=== PATIENT | female | born 2000 | race Caucasian/White ===

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

== ENCOUNTER → 2019-05-16 | Outpatient (CLI) | payer BC ==
[2019-05-16 10:28] LABS: Candida species (DNA Probe) Negative (NEGATIVE); G. vaginalis (DNA Probe) Positive (NEGATIVE); T. vaginalis (DNA Probe) Negative (NEGATIVE)
[2019-05-17 05:09] LABS: HIV SCREEN 4TH GENERATION WRFX Non Reactive (Non Reactive)
[2019-05-17 06:08] LABS: HBSAG SCREEN Negative (Negative); HEP C VIRUS AB <0.1 (0.0-0.9)
[2019-05-17 21:06] LABS: CHLAMYDIA TRACHOMATIS, NAA Negative (Negative); NEISSERIA GONORRHOEAE, NAA Negative (Negative)
[2019-05-19 08:08] LABS: HEP A AB, IGM Negative; HEP B CORE AB, IGM Negative
== END | disposition home or self-care (01) ==
LOC: LAB SHORT 09:23 → LAB 09:23
PROVIDERS: Physician Assistant
DX: R10.9 Unspecified abdominal pain (principal)
CPT/HCPCS: 80074; 86592; 87086; 87389; 87480; 87491; 87510; 87591; 87660

== ENCOUNTER 2020-04-16 12:11 | Emergency (ER) | payer BC ==
[~2020-04-16] VITALS: Ht 162.6 cm; Wt 86.2 kg
[2020-04-16 13:14] LABS: BASOPHILS ABSOLUTE AUTO 0.04 K/mm3 (0.00-0.23); BASOPHILS PERCENT AUTO 1 % (0-2); EOSINOPHILS ABSOLUTE AUTO 0.15 K/mm3 (0.00-0.68); EOSINOPHILS PERCENT AUTO 2 % (0-6); Hematocrit 43.9 % (33.0-51.0); Hemoglobin 14.6 g/dL (11.5-16.0); IMMATURE GRAN ABSOLUTE AUTO 0.02 K/mm3 (0.00-0.10); IMMATURE GRAN PERCENT AUTO 0 % (0-1); LYMPHOCYTES ABSOLUTE AUTO 1.27 K/mm3 (0.84-5.20); LYMPHOCYTES PERCENT AUTO 15 % (21-46); MONOCYTES ABSOLUTE AUTO 0.68 K/mm3 (0.16-1.47); MONOCYTES PERCENT AUTO 8 % (4-13); Mean Corpuscular HGB Conc 33.3 g/dL (31.5-36.5); Mean Corpuscular Volume 90 fL (80-100); NEUTROPHILS ABSOLUTE AUTO 6.52 K/mm3 (1.96-9.15); NEUTROPHILS PERCENT AUTO 75 % (41-73); Platelet Count 269 K/mm3 (150-400); RDW Coefficient Variation 12.1 % (11.7-14.2); RDW Standard Deviation 40.2 fL (35.1-46.3); Red Blood Cell Count 4.86 M/mm3 (3.80-5.20); White Blood Cell Count 8.68 K/mm3 (4.00-11.30)
[2020-04-16 13:39] LABS: Alanine Aminotransfer (ALT/SGP 35 U/L (12-78); Alk Phos 86 U/L (50-136); Anion Gap 5 mmol/L (6-16); Aspartate Aminotrans (AST/SGOT 30 U/L (12-37); Bilirubin, Total 0.5 mg/dL (0.1-1.0); Blood Urea Nitrogen 14 mg/dL (8-24); Bun/Creatinine Ratio 16.1 (12.0-20.0); CO2, Blood 25 mmol/L (21-32); Chloride, Blood 109 mmol/L (98-108); Creatinine, Blood 0.87 mg/dL (0.40-1.00); Glomerular Filtration Rate >60 (60-); Glucose, Blood 66 mg/dL (70-99); Potassium, Blood 3.9 mmol/L (3.5-5.5); Sodium, Blood 139 mmol/L (136-145)
[2020-04-16 14:20] LABS: Source, Urine Clean Catch
[2020-04-16 15:22] LABS: Appearance, Urine Clear (Clear); Bilirubin, Urine Neg (Neg); Blood, Urine 1+ (Neg); Color, Urine Yellow (P-Yellow); Glucose Qualitative, Urine Neg (Neg); Ketones, Urine Neg (Neg); Leukocyte Esterase, Urine Neg (Neg); Nitrite, Urine Neg (Neg); Protein, Urine Neg (Neg); Urobilinogen, Urine NORM (Normal)
[2020-04-16 15:51] LABS: White Blood Cells, Urine Not Seen /hpf (0-5)
[2020-04-16 15:52] LABS: Bacteria Not Seen /hpf; Red Blood Cells, Urine Rare /hpf (0-2); Squamous Epithelial Cells Rare /hpf (Few)
== END 2020-04-16 15:54 | disposition home or self-care (01) ==
LOC: ER 12:11
PROVIDERS: Physician Assistant
DX: E16.2 Hypoglycemia, unspecified (principal); Z88.0 Allergy status to penicillin; Z88.1 Allergy status to other antibiotic agents; Z88.2 Allergy status to sulfonamides
CPT/HCPCS: 36415; 80053; 81001; 82947; 85025; 99284

== ENCOUNTER 2021-01-21 08:25 | Day surgery (SDC) | payer BC, SELFPAY ==
[~2021-01-21] VITALS: Ht 162.6 cm; Wt 96.1 kg
[~2021-01-21 08:25] MED LIST changes: +MELO7.5; +PANT40
[2021-01-21] MEDS ORDERED: MELO7.5 PO (09:03)
[2021-01-21] MEDS ORDERED: BUSP5 PO (09:04)
--- NOTE | 2021-01-21 09:22 | NUR ---
01/21/21 0922 Antoinette Aguilar PT STS PCN ALLERGY IS MILD RASH; SURGEON NOTIFIED. STS OKAY TO PROCEED WITH TEST DOSE OF 10ML. IF NO REACTION, CONTINUE WITH REMAINING ANCEF DOSE.
--- NOTE | 2021-01-21 10:31 | NUR ---
01/21/21 1031 Robert Dubois 1 MG EPI ADDED TO THE FIRST BAG OF LR FOR IRRIGATION PER ORDER.
== END 2021-01-21 11:25 | disposition home or self-care (01) ==
LOC: ORSCSDS 08:25
PROVIDERS: Orthopaedic Surgery
PROC: 0SQD4ZZ Repair Left Knee Joint, Percutaneous Endoscopic Approach (ICD-10-PCS; principal; 2021-01-21 09:45)
PROC: 0SCD4ZZ Extirpation of Matter from Left Knee Joint, Percutaneous Endoscopic Approach (ICD-10-PCS; principal; 2021-01-21 09:45)
DX: M93.262 Osteochondritis dissecans, left knee (principal); J45.909 Unspecified asthma, uncomplicated; F41.8 Other specified anxiety disorders; K21.9 Gastro-esophageal reflux disease without esophagitis; F32.9 Major depressive disorder, single episode, unspecified; E66.9 Obesity, unspecified; Z68.36 Body mass index [BMI] 36.0-36.9, adult; Z79.899 Other long term (current) drug therapy
CPT/HCPCS: 88304; 88311; A9270; J0171; J0690; J1100; J1885; J2250; J2405; J2704; J2765; J3010; J7120

== ENCOUNTER 2021-06-03 03:51 | Emergency (ER) | payer OTHER, BC ==
[~2021-06-03] VITALS: Ht 165.1 cm; Wt 98.9 kg
[~2021-06-03 03:51] MED LIST changes: +BUSP5 PO; +MELO7.5 PO
== END 2021-06-03 06:27 | disposition home or self-care (01) ==
LOC: ER 03:51
DX: S09.90XA Unspecified injury of head, initial encounter (principal); F17.210 Nicotine dependence, cigarettes, uncomplicated; Z88.0 Allergy status to penicillin; Z88.1 Allergy status to other antibiotic agents; Z88.2 Allergy status to sulfonamides; Z88.8 Allergy status to other drugs, medicaments and biological substances; Y04.2XXA Assault by strike against or bumped into by another person, initial encounter; Y93.F9 Activity, other caregiving; Y92.239 Unspecified place in hospital as the place of occurrence of the external cause; Y99.0 Civilian activity done for income or pay
CPT/HCPCS: 99283

== ENCOUNTER 2022-07-14 08:45 | Emergency (ER) | payer BC ==
[~2022-07-14] VITALS: Ht 165.1 cm; Wt 99.8 kg
[~2022-07-14 08:45] MED LIST changes: +Atarax10 MG PO; +ONDA4ODT MM
[2022-07-14 10:34] LABS: Source, Urine Clean Catch
[2022-07-14 10:46] LABS: BASOPHILS ABSOLUTE AUTO 0.07 K/mm3 (0.00-0.23); BASOPHILS PERCENT AUTO 1 % (0-2); EOSINOPHILS ABSOLUTE AUTO 0.17 K/mm3 (0.00-0.68); EOSINOPHILS PERCENT AUTO 2 % (0-6); Hematocrit 39.5 % (33.0-51.0); Hemoglobin 12.3 g/dL (11.5-16.0); IMMATURE GRAN ABSOLUTE AUTO 0.03 K/mm3 (0.00-0.10); IMMATURE GRAN PERCENT AUTO 0 % (0-1); LYMPHOCYTES ABSOLUTE AUTO 3.76 K/mm3 (0.84-5.20); LYMPHOCYTES PERCENT AUTO 34 % (21-46); MONOCYTES ABSOLUTE AUTO 0.77 K/mm3 (0.16-1.47); MONOCYTES PERCENT AUTO 7 % (4-13); Mean Corpuscular HGB 25.9 pg (26.0-34.0); Mean Corpuscular HGB Conc 31.1 g/dL (31.5-36.5); Mean Corpuscular Volume 83 fL (80-100); Mean Platelet Volume 9.2 fL (9.1-12.4); NEUTROPHILS ABSOLUTE AUTO 6.23 K/mm3 (1.96-9.15); NEUTROPHILS PERCENT AUTO 57 % (41-73); Platelet Count 297 K/mm3 (150-400); RDW Coefficient Variation 12.5 % (11.7-14.2); RDW Standard Deviation 38.2 fL (35.1-46.3); Red Blood Cell Count 4.74 M/mm3 (3.80-5.20); White Blood Cell Count 11.03 K/mm3 (4.00-11.30)
[2022-07-14 10:50] LABS: Bilirubin, Urine Neg (Neg); Blood, Urine Neg (Neg); Glucose Qualitative, Urine Neg (Neg); Ketones, Urine Neg (Neg); Leukocyte Esterase, Urine Neg (Neg); Nitrite, Urine Neg (Neg); Protein, Urine Neg (Neg); Specific Gravity, Urine 1.015 (1.003-1.022); Urobilinogen, Urine NORM (Normal)
[2022-07-14 10:52] LABS: Appearance, Urine Clear (Clear); Color, Urine Yellow (P-Yellow)
[2022-07-14 11:04] LABS: Albumin, Blood 4.2 g/dL (3.4-5.0); Albumin/Globulin Ratio 1.1 (0.8-1.8); Bilirubin, Total 0.2 mg/dL (0.1-1.0); Bun/Creatinine Ratio 16.5 (12.0-20.0); Calcium, Blood 9.1 mg/dL (8.5-10.1); Creatinine, Blood 0.97 mg/dL (0.40-1.00); Globulin, Blood 3.7 g/dL (2.2-4.0); Potassium, Blood 3.7 mmol/L (3.5-5.5); Total Protein, Blood 7.9 g/dL (6.4-8.2)
[2022-07-14] MEDS ORDERED: ONDA4ODT MM (11:22)
== END 2022-07-14 11:30 | disposition home or self-care (01) ==
LOC: ER 08:45
PROVIDERS: Physician Assistant
DX: R10.11 Right upper quadrant pain (principal); Z88.0 Allergy status to penicillin; Z88.1 Allergy status to other antibiotic agents; Z88.2 Allergy status to sulfonamides; Z88.8 Allergy status to other drugs, medicaments and biological substances; Z79.899 Other long term (current) drug therapy
CPT/HCPCS: 36415; 76705; 80053; 81003; 81025; 83690; 85025; A9270

== ENCOUNTER 2023-02-20 16:12 | Emergency (ER) | payer BC ==
[~2023-02-20] VITALS: Ht 165.1 cm; Wt 113.4 kg
[2023-02-20 16:16] VITALS: BP 124/92
== END 2023-02-20 19:51 | disposition home or self-care (01) ==
LOC: ER 16:12
DX: M54.50 Low back pain, unspecified (principal); Z88.0 Allergy status to penicillin; Z88.1 Allergy status to other antibiotic agents; Z88.2 Allergy status to sulfonamides; Z88.8 Allergy status to other drugs, medicaments and biological substances; Z79.899 Other long term (current) drug therapy
CPT/HCPCS: 72100; 96372; 99283-25; A9270; J1885

== ENCOUNTER 2025-06-16 08:50 | Day surgery (SDC) | payer BC ==
[~2025-06-16] VITALS: Ht 165.1 cm; Wt 94.0 kg
[~2025-06-16 08:50] MED LIST changes: +Bupivacaine 0.5% W/EPI 1:200000 SDV 30 ML Vial ONE; +OXAYDO5 M1 PO
[2025-06-16] MEDS ORDERED: Dexmedetomidine HCL 200 MCG / 2 ML ONE (08:53)
[2025-06-16] MEDS ORDERED: Dexamethasone Sod Phos 10 MG/ML 1ML VIAL ONE (09:14)
[2025-06-16] MEDS ORDERED: Midazolam HCl 1MG / ML 2ML Vial ONE (09:15)
[2025-06-16] MEDS ORDERED: Inderal40 MG (09:18)
[2025-06-16] MEDS ORDERED: SERT100 (09:20)
[2025-06-16] MEDS ORDERED: CeFAZolin Sodium 2,000 MG VIAL ONE (09:41)
--- NOTE | 2025-06-16 10:22 | NUR ---
06/16/25 1022 Aleena Kulkarni PT HAD BLOCK DONE IN PREOP OF RIGHT LEG T/O AT 1002 START AT 1005 END AT 1010. PT TOLERATED WELL
[2025-06-16] MEDS ORDERED: Bupivacaine 0.5% HCl 5 MG/ML 30MLVIAL ONE (10:23)
[2025-06-16] MEDS ORDERED: FentaNYL Citrate 50 MCG/ML 2 ML Injection ONE ×3 (10:29→12:06)
[2025-06-16] MEDS ORDERED: Ondansetron HCl 2 MG / ML 2ML Vial ONE (11:12)
[2025-06-16] MEDS ORDERED: OxyCODONE 5 mg/Acetamin 325 mg TABLET ONE (12:34)
[2025-06-16 12:45] VITALS: BP 134/87
--- NOTE | 2025-06-16 12:47 | NUR ---
06/16/25 1247 Jeanie Madison PATIENT SITTING IN RECLINER. ATE 2 STRING CHEESES AND DRANK APPLE JUICE WITHOUT ANY PROBLEMS. DENIES NAUSEA OR DIZZINESS. PERCOCET 5-325MG PO X1 GIVEN AT 1240 FOR C/O 5/10 PAIN IN AREA AROUND R ANKLE.
== END 2025-06-16 13:18 | disposition home or self-care (01) ==
LOC: ORSCSDS 08:50
PROVIDERS: Podiatrist Foot & Ankle Surgery
PROC: 0SBF4ZZ Excision of Right Ankle Joint, Percutaneous Endoscopic Approach (ICD-10-PCS; principal; 2025-06-16 10:15)
PROC: 0MQQ0ZZ Repair Right Ankle Bursa and Ligament, Open Approach (ICD-10-PCS; principal; 2025-06-16 10:15)
DX: S93.491A Sprain of other ligament of right ankle, initial encounter (principal); M25.371 Other instability, right ankle; J45.909 Unspecified asthma, uncomplicated; F41.9 Anxiety disorder, unspecified; F32.A Depression, unspecified; Z79.899 Other long term (current) drug therapy; Z68.34 Body mass index [BMI] 34.0-34.9, adult
CPT/HCPCS: A6253; A9270; C1713; J0166; J0690; J1100; J2250; J2405; J2704; J3010; J7120